=== PATIENT | female | born 2000 | race Two or more races ===

== ENCOUNTER 2022-06-27 05:19 | Emergency (ER) | payer MEDICAID ==
[~2022-06-27] VITALS: Ht 162.6 cm; Wt 44.8 kg
[2022-06-27 05:47] VITALS: BP 120/88
[2022-06-27] MEDS ORDERED: DEXTROSE 10% 250 ML IV ONE (06:48)
== END 2022-06-27 07:57 | disposition left against medical advice (07) ==
LOC: ER 05:19
DX: R45.851 Suicidal ideations (principal); Z53.21 Procedure and treatment not carried out due to patient leaving prior to being seen by health care provider